=== PATIENT | male | born 1960 | race Caucasian/White ===

== ENCOUNTER 2019-01-23 10:47 | Emergency (ER) | payer OTHER ==
[~2019-01-23] VITALS: Ht 175.3 cm; Wt 99.8 kg
[2019-01-23] MEDS ORDERED: SIMVASTATIN80 MG PO (10:53)
[2019-01-23] MEDS ORDERED: SYNTHROID100 MC1 PO (10:53)
[2019-01-23] MEDS ORDERED: [UNRECOGNIZED DRUG - REMARK] PO (10:54)
[2019-01-23] MEDS ORDERED: ACYCLOVIR 800800 MG PO (11:17)
[2019-01-23] MEDS ORDERED: PREDNISONE 10 M10 M1 PO (11:17)
[2019-01-23 12:04] LABS: ABSOLUTE BASOPHILS 0.1 thou/uL (0.0-0.2); ABSOLUTE EOSINOPHILS 0.1 thou/uL (0.0-0.7); ABSOLUTE LYMPHOCYTES 1.4 thou/uL (0.8-5.3); ABSOLUTE MONOCYTES 0.8 thou/uL (0.0-1.2); ABSOLUTE NEUTROPHILS 3.8 thou/uL (1.6-8.1); BASOPHILS 0.9 %; EOSINOPHILS 2.3 %; HEMOGLOBIN 14.4 gm/dL (14.0-18.0); LYMPHOCYTES 22.9 %; MCH 32.6 pg (26.0-34.0); MCHC 34.4 g/dL (28.0-37.0); MCV 94.9 fL (80.0-100.0); MONOCYTES 12.8 %; MPV 8.3 fl. (7.2-11.1); NUCLEATED RBCS 0 /100WBC; PLATELET COUNT* 148 thou/uL (150-400); POLYS 61.1 %; RBC 4.43 mil/uL (4.50-6.00); RDW-CV 13.7 % (10.5-14.5); WBC 6.2 thou/uL (4.0-11.0)
[2019-01-23 12:13] LABS: CALCIUM 9.8 mg/dL (8.5-10.1); CREATININE 0.9 mg/dL (0.6-1.3); POTASSIUM 4.3 mmol/L (3.5-5.1)
[2019-01-23 12:18] LABS: ALBUMIN 3.9 g/dL (3.4-5.0); TOTAL BILIRUBIN 0.5 mg/dL (<0.1-1.0); TOTAL PROTEIN 7.9 g/dL (6.4-8.2)
[2019-01-23 12:54] VITALS: BP 149/83
--- NOTE | 2019-01-23 18:15 | EKG ---
[place] [address] ELECTROCARDIOGRAM REPORT Name: BASIM LOZA Room: [facility]#: [id number] Admission: 01/23/19 Attend Phys: Discharge: 01/23/19 Date of : 56 Report #: [id number] THIS REPORT FOR: //name// [facility] ED Test Date: 2019-01-23 Test Time: 11:32:14 Pat Name: BASIM LOZA Department: Room: Gender: [employer]: : 1960 Requested By: Nishant Thompson Order Number: [id number] MD: Garrick Castro Measurements Intervals [place] Rate: 74 P: 17 NC: 164 QRS: 9 QRSD: 91 T: 13 QT: 388 QTc: 431 Interpretive Statements Sinus rhythm No previous ECG available for comparison Electronically Signed On 01-23-2019 18:15:01 CDT by Garrick Castro [email or web address] <ELECTRONICALLY SIGNED> By: Garrick Castro MD, [facility] 01/23/19 1815 1132 1132 Garrick Castro MD, FACC /EPI
== END 2019-01-23 12:55 | disposition home or self-care (01) ==
LOC: M.ERS 10:47
PROVIDERS: Emergency Medicine Emergency Medical Services
DX: G51.0 Bell's palsy (principal)